=== PATIENT | male | born 1980 | race Caucasian/White ===

== ENCOUNTER 2019-12-15 09:41 | Day surgery (SDC) | payer MEDICAID ==
[~2019-12-15] VITALS: Ht 188 cm; Wt 172.7 kg
[2019-12-15 09:50] VITALS: BP 130/90
[2019-12-15] MEDS ORDERED: fentaNYL/PF 50MCG/1 ML 2ML syringe ONE (10:03)
[2019-12-15] MEDS ORDERED: MIDAZolam 5mg/5ml vial ONE (10:03)
[2019-12-15] MEDS ORDERED: TRAM50TA2 PO (10:20)
[2019-12-15] MEDS ORDERED: ALBU18HF2 INH (10:20)
[2019-12-15] MEDS ORDERED: LORA-660 PO (10:21)
[2019-12-15] MEDS ORDERED: METH15TA2 PO (10:21)
[2019-12-15] MEDS ORDERED: FOLI0.4T14 PO (10:22)
[2019-12-15] MEDS ORDERED: HYDR200T84 PO (10:23)
[2019-12-15] MEDS ORDERED: SULF500T46 PO (10:29)
[2019-12-15] MEDS ORDERED: MECL-159 PO (10:30)
[2019-12-15] MEDS ORDERED: ADAL40PE SUBCUT (10:30)
[2019-12-15] MEDS ORDERED: OMEP-50 PO (10:31)
[2019-12-15 11:40] VITALS: BP 133/68
[2019-12-15 11:50] VITALS: BP 132/85
[2019-12-15 12:00] VITALS: BP 125/73
[2019-12-15 12:10] VITALS: BP 133/73
== END 2019-12-15 12:50 | disposition home or self-care (01) ==
LOC: GI LAB 09:41
PROVIDERS: ATTEND Internal Medicine Gastroenterology
DX: K92.1 Melena (principal); R19.7 Diarrhea, unspecified; K62.1 Rectal polyp; K64.8 Other hemorrhoids
CPT/HCPCS: 45380; 45385; 99152; 99153; C1773; J2250; J3010; J7040; A4620

== ENCOUNTER 2024-07-19 13:46 | Outpatient (CLI) | payer MEDICAID ==
[~2024-07-19 13:46] MED LIST: ADAL40PE SUBCUT; ALBU18HF2 INH; FOLI0.4T14 PO; HYDR200T73 PO; LORA-657 PO; MECL-302 PO; METH15TA2 PO; OMEP20CA16 PO; SULF500T46 PO; TRAM50TA2 PO
== END 2024-07-19 23:59 | disposition home or self-care (01) ==
LOC: RAD 13:46
PROVIDERS: ATTEND Surgery
DX: N20.0 Calculus of kidney (principal); K42.9 Umbilical hernia without obstruction or gangrene; M62.08 Separation of muscle (nontraumatic), other site; N28.1 Cyst of kidney, acquired
CPT/HCPCS: 74176